=== PATIENT | female | born 1985 | race Caucasian/White ===

== ENCOUNTER 2016-12-14 16:59 | Outpatient (CLI) | payer OTHER ==
[2016-11-10 07:08] VITALS: BP 146/72
== END 2016-12-14 17:04 | disposition home or self-care (01) ==
LOC: LAB 16:59
PROVIDERS: ATTEND Family Medicine
DX: G50.0 Trigeminal neuralgia (principal)
CPT/HCPCS: 36415; 85651

== ENCOUNTER 2016-12-23 14:17 | Outpatient (CLI) | payer OTHER ==
[2016-11-10 07:08] VITALS: BP 146/72
--- NOTE | 2016-12-24 11:13 | OP Clinic Progress Note ---
REFERRING PHYSICIAN: Dr. David Chaves REASON FOR VISIT: This 31-year-old female is seen with a multitude of problems. She mostly is bothered by pain and discomfort of the left side of her face and head. She has both pain in her left jaw joint. She has pain that radiates along the vidian canal of V2 branch of the 5th nerve and some on the lower branch. She has pressure and discomfort in her ear. She is imbalanced and tends to fall towards the left side. Both ears have high arched canals and it is very difficult to see just the top maybe 15% or 20% of the eardrums. I do not see any obvious fluid. She is quite tender in the suboccipital and the submastoid areas on the left side. The patient also has quite a large torus mandibularis. Another developmental abnormality is that she has a midline fissure of the hard palate and she can blow air through this. Patient has a Class 3 Arnold-Chiari malformation that she is going to go to [facility] to be considered for decompression surgery. 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 She does have somewhat abnormal alignment of her teeth and by history, she has some abnormal teeth deep to this. Nevertheless, she has a fairly good bite. She does tend to sleep on her stomach and by her history, she sleeps on both sides, sometimes sleeping predominantly where 1 side can help to push the jaw off. She is quite tender in the left TMJ area and not the right. The patient does have by history a Class 3 Arnold-Chiari malformation that is being followed up at [facility]. The patient has left-sided TMJ issues and I have asked her to be considered for a bite guide in this regard and to see her dentist. 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 PLAN: She could be considered for an M&T or a myringotomy or a left tensor section. She needs to have the inferior canal taken down to get access, as it is extremely high on both sides. The patient, I believe, has a better understanding. Diagrams and models have been used. She was given a card and if she chooses to follow up for issues regarding the ear, she can see me. She will continue to follow up at [facility] for her Arnold-Chiari. She will see her dentist regarding a bite guide for her left TMJ symptoms. The patient is not inappropriately or significantly bothered by the multitude of diverse problems and pain associated with these. cc: Dr. David CHAVEZ
== END 2016-12-23 14:20 ==
LOC: ENT 14:17
PROVIDERS: ATTEND Otolaryngology
DX: M26.602 Left temporomandibular joint disorder, unspecified (principal); H92.02 Otalgia, left ear; H93.12 Tinnitus, left ear
CPT/HCPCS: 99213

== ENCOUNTER 2017-05-16 12:54 | Emergency (ER) | payer OTHER ==
--- NOTE | 2017-05-16 13:34 | ED Physician Documentation ---
Sore Throat/Dental Pain - HISTORIAN Historian: patient, parent - HPI Chief Complaint: Dental Pain Additional Information: swollen lt mandibular area-hx trigeminal neuralgia pain 2-3 days - swelling inc pain this am Onset: days ago (3) Context: Abscess, Dental Caries Associated Symptoms: moderate, severe. denies: fever, sore throat, runny nose Worsened By: heat, cold - ROS CONST: no problems CVS/RESP: none GI/: denies: problems urinating, nausea, vomiting MS/SKIN/LYMPH: muscle aches NEURO/PSYCH: headache, anxiety - PAST HX Past History: other (chiari malformation trigeminal neuralgia ptsd depression) Immunizations: UTD Allergies/Adverse Reactions: Allergies Allergy/AdvReac Type Severity Reaction Status Date / Time Opioids - Morphine Analogues Allergy Verified 11/10/16 07:17 Penicillins Allergy Verified 11/10/16 07:17 - SOCIAL HX Smoking History: less than 1 pack/day Alcohol Use: none Drug Use: none - FAMILY HX Family History: No - VITAL SIGNS Vital Signs: Vital Signs Temp Pulse Resp BP Pulse Ox 146/72 11/10/16 07:18 - REVIEWED ASSESSMENTS Nursing Assessment Reviewed: Yes Vitals Reviewed: Yes Dental Pain Physical Exam - EXAM General Appearance: moderate distress, anxious Head/Neck: head nml inspection, trachea midline, mandibular swelling (L). No: no lymphadenopathy, thyroid nml (surgically removed) Eyes: eyes nml inspection Mouth/Throat: lips nml, gums nml, pharynx nml, other (dental decay tooth 20) Ear/Nose: nml inspection. No: TM erythema Respiratory: breath sounds nml. No: no resp. distress, respiratory distress CVS: reg. rate & rhythm, heart sounds nml Abdomen: soft, non-tender Skin: warm/dry, normal color. No: cyanosis Neuro/Psych: anxiety. No: weakness, numbness Discharge Clincal Impression: dental abscess dental faina tooth 20, hx trigeminal neuralgia Referrals: David Chaves MD [Primary Care Provider] - 2 Days Comments: must see dentists soon Condition: Good Disposition: 01 HOME, SELF-CARE Decision to Admit: NO Decision Time: 13:34
[2017-05-16 19:44] VITALS: BP 136/95
== END 2017-05-16 13:25 | disposition home or self-care (01) ==
LOC: ED 12:54
DX: K04.7 Periapical abscess without sinus (principal); K02.9 Dental caries, unspecified
CPT/HCPCS: 99283

== ENCOUNTER 2017-08-16 13:25 | Outpatient (CLI) | payer OTHER | END 2017-08-16 13:26 | LOC: LAB 13:25 | PROVIDERS: ATTEND Psychiatry & Neurology Psychiatry | DX: Z79.899 Other long term (current) drug therapy (principal) | CPT/HCPCS: 36415; 80061; 83036 ==

== ENCOUNTER 2019-04-29 11:19 | Emergency (ER) | payer OTHER | END 2019-04-29 12:04 | LOC: ED 11:19 | DX: S00.522A Blister (nonthermal) of oral cavity, initial encounter (principal); X58.XXXA Exposure to other specified factors, initial encounter; Y99.8 Other external cause status | CPT/HCPCS: 99282 ==